=== PATIENT | female | born 1990 | race Caucasian/White ===

== ENCOUNTER 2018-10-05 20:39 | Emergency (ER) | payer SELFPAY | END 2018-10-05 21:00 | disposition home or self-care (01) | LOC: E/R 20:39 | DX: F10.920 Alcohol use, unspecified with intoxication, uncomplicated (principal) | CPT/HCPCS: 82962; 99283 ==

== ENCOUNTER 2019-02-24 05:08 | Emergency (ER) | payer OTHER ==
[2019-02-24] MEDS: ONDANSETRON (ODT) 4 MG TAB ODT (06:00)
== END 2019-02-24 06:32 | disposition home or self-care (01) ==
LOC: FTE 05:08
DX: R06.02 Shortness of breath (principal)
CPT/HCPCS: 93005; 99283-25

== ENCOUNTER 2019-04-27 16:03 | Emergency (ER) | payer OTHER | END 2019-04-27 18:41 | disposition home or self-care (01) | LOC: FTE 16:03 | DX: S09.90XA Unspecified injury of head, initial encounter (principal); R51 Headache; X58.XXXA Exposure to other specified factors, initial encounter; Y92.9 Unspecified place or not applicable | CPT/HCPCS: 70450; 81025; 99284-25 ==